=== PATIENT | female | born 1980 | race Hispanic/Latino ===

== ENCOUNTER 2023-06-24 22:18 | Emergency (ER) | payer OTHER, SELFPAY ==
[2023-06-24 22:21] VITALS: BP 133/85
[2023-06-24 22:34] LABS: % Basophils 0.3 % (0-2); % Eosinophils 1.5 % (0-6); % Immature Granulocytes 0.3 % (0-0.5); % Lymphocytes 34.5 % (20.5-51.1); % Monocytes 6.2 % (1.7-9.3); % Neutrophils 57.2 % (42.2-75.2); Absolute Eosinophils 0.1 10^3/uL (0-0.7); Absolute Lymphocytes 2.6 10^3/uL (1.2-3.4); Absolute Monocytes 0.5 10^3/uL (0.1-0.6); Absolute Neutrophils 4.2 10^3/uL (1.4-6.5); Hematocrit 31.6 % (37.0-47.0); Hemoglobin 11.1 g/dL (12.0-16.0); Mean Corp Hgb Conc. 35.1 g/dL (33.0-37.0); Mean Corpuscular Hgb 29.4 pg (27.0-31.0); Mean Corpuscular Volume 83.8 fL (81.0-99.0); Nucleated Red Blood Cells % 0 %; Platelet Count 254 10^3/uL (130-400); Red Blood Cell Count 3.77 10^6/uL (4.20-5.40); Red Cell Dist. Width 13.2 % (11.5-14.5); White Blood Cell Count 7.4 10^3/uL (4.8-10.8)
[2023-06-24 22:44] LABS: HCG, Serum Qualitative Screen Negative
[2023-06-24 22:48] LABS: ALT (SGPT) 42 U/L (0-35); AST (SGOT) 30 U/L (14-36); Albumin 4.1 g/dl (3.5-5.0); Alkaline Phosphatase 82 U/L (38-126); Blood Urea Nitrogen 11 mg/dl (7-17); Calcium 8.9 mg/dl (8.4-10.2); Carbon Dioxide 28 mmol/L (22-30); Chloride 105 mmol/L (98-107); Glucose 88 mg/dl (70-99); Potassium 3.4 mmol/L (3.5-5.1); Sodium 135 mmol/L (135-145); Total Bilirubin 0.6 mg/dl (0.2-1.3); Total Protein 7.2 g/dl (6.3-8.2); eGFR > 60.00
[2023-06-24 22:53] VITALS: BMI 31.4
[2023-06-24 23:18] LABS: Urine Albumin Negative (Neg - Trace); Urine Bilirubin Negative (Negative); Urine Character Clear (Clear); Urine Color Yellow; Urine Glucose Negative (Negative); Urine Ketone Negative (Negative); Urine Leukocyte Negative (Negative); Urine Nitrite Negative (Negative); Urine Occult Blood Negative (Negative); Urine Specific Gravity 1.015 (<1.030); Urine Urobilinogen Negative (Neg - 1+)
--- NOTE | 2023-06-24 23:29 | ED.GENMED ---
History of Present Illness
General
Chief Complaint: Female Coagulating Bath Mixer/Gu symptoms
Source: patient
Exam Limitations: none
Time Seen by Provider: 06/24/23 23:09
Travel History
Have you had any contact with someone who has COVID-19?: No
Do you have any symptoms of coronavirus? Fever > 100 degrees, chills, cough, shortness of breath, sore throat, loss of taste or smell, muscle aches, or headache?: No
History of Present Illness
History of Present Illness:
This is a 43 year old female that comes in with c/o left lower abd pain. States that this feels like pain that she has had on the right side when she had an ovarian cyst. Staes that this has been going on for the past year but her Child has sickle
cell and she is always in the hospital with him. States that the pain is getting worse. States that she has also missed her Period in April and so far in [facility]. Denies any fever,chills, chest pain, SOB, nausea, vomiting, diarrhea, headache,
dizziness, urinary burning.
Past History
Past History
ED Past Medical History: Asthma, Cancer (Thyroid), HTN and Other (Migraines, Chronic back pain, Herniated disc, Ovarian cyst, Sickle cell trait)
ED Past Surgical History: Appendectomy, Cholecystectomy, , Gynecological (Tubal) and Other (Thyroidectomy)
Social History
Tobacco: Non-smoker
Alcohol: None
Drug: None
Personal: Single
Living: with family
Review of Systems
Review of Systems
All Other Systems: ROS reviewed and negative except as documented in HPI and ROS
Constitutional: Reports no symptoms; Denies fever or chills
EENT: Reports no symptoms
Respiratory: Reports no symptoms; Denies cough or trouble breathing
Cardiac: Reports no symptoms; Denies chest pain
ABD/GI: Reports abdominal pain; Denies nausea, vomiting or diarrhea
: Reports no symptoms; Denies dysuria, frequency or urgency
Musculoskeletal: Reports no symptoms
Skin: Reports no symptoms
Neurological: Reports no symptoms; Denies dizzy or headache
Psychiatric: Reports no symptoms
Phy Exam
General Physical Exam
General Presentation: no apparent distress
General age: appears stated age
General Skin: warm and dry
General Habitus: normal
General Mental: alert
General Hydration: appears well hydrated
ENT Exam
ENT Exam: TM's normal, pharynx normal and neck supple
Eye Exam
Eye Exam: EOMI
Cardiovascular Exam
Cardiovascular Exam: regular rate/rhythm, no edema, no murmur and normal peripheral pulses
Pulmonary Exam
Pulmonary Exam: lungs clear, no respiratory distress, no rales, chest non tender, no crackles, no rhonchi, no wheezing and no cough
Gastrointestinal Exam
Gastrointestinal Exam: normal bowel sounds, soft, no organomegaly, no pulsatile mass, non distended and tender (Left lower abd pain)
Musculoskeletal Exam
Musculoskeletal Exam: full ROM and no edema
Skin Exam
Skin Exam: normal color, warm/dry, no rash and no petechia
Psychiatric Exam
Psychiatric Exam: normal mood/affect
Course
Orders/Labs/Results
Orders:
Orders
06/24/23 22:24
Test Result ONCE
06/24/23 22:28
Complete Blood Count/With Diff Urgent
Comprehensive Metabolic Panel Urgent
HCG, Serum Qualitative Screen Urgent
06/24/23 22:31
Free T4 Urgent
TSH Reflex To Free T4 Urgent
Comment: ADDED
06/24/23 23:11
Urinalysis Reflex To Culture Urgent
Date Specimen was Collected: 06/24/23
Time Specimen was Collected: 23:06
06/24/23 23:28
Add On- LAB Urgent
Tests Added?: TSH with reflex free T4
0.9% Sodium Chloride 1000 ml [Nss] 1,000 ml IV BOLUS
06/25/23 00:00
US Pelvis Only (non-obstetric) Urgent
Reason For Exam: Left lower abd pain
06/25/23 01:36
CT Abd/pelvis W Iv Cont Urgent
Comment:
Reason For Exam: Left sided abd pain.
06/25/23 01:38
Ketorolac [Toradol] 30 mg IV NOW STA
Abnormal Lab Results
06/24/23 06/24/23
22: 22:31
RBC 3.77 L 10^6/uL
(4.20-5.40)
Hgb 11.1 L g/dL
(12.0-16.0)
Hct 31.6 L %
(37.0-47.0)
Potassium 3.4 L mmol/L
(3.5-5.1)
ALT 42 H U/L
(0-35)
TSH (Reflex) 4.80 H uIU/ml
(0.47-4.68)
06/24/23 22:28
06/24/23 22:28
H/H slightly low. ALT mildly elevated. HCG negative. Urine negative for infection.
TSH 4.80
Vital Signs
Initial and Last Documented VS:
Initial Vital Signs
Temp Pulse Resp BP Pulse Ox
98.4 F 72 19 133/85 100
06/24/23 22:21 06/24/23 22:21 06/24/23 22:21 06/24/23 22:21 06/24/23 22:21
Last Documented Vital Signs
Temp Pulse Resp BP Pulse Ox
97.8 F 80 20 112/71 99
06/25/23 01:36 06/25/23 01:36 06/25/23 01:36 06/25/23 01:36 06/25/23 01:36
MDM/Problems Addressed
Differential Diagnosis Includes:
Ovarian cyst, Diverticulitis,
MDM/Problems Addressed:
This is a 43 year old female that comes in with c/o left lower abd pain. States that she feels this is an ovarian cyst and has had discomfort for a year but this is getting worse.
Will get labs and US. If US is negative will get CT scan. Will give IV fluids to help fill patient. Will also get Urine.
Back into see patient. Explained that her US is negative for any acute process. There is an ovarian follicle in the left and the right ovary is absent. This would not cause patient pain. Will get CT to r/o any colitis or diverticulitis.
Back into see patient. Explained that the CT shows that there is a left ovarian cyst. Otherwise there is no acute process. Patient can follow up with the [facility] for further evaluation. Patient also notified that her TSH was slightly elevated at
4.80. Patient can follow up with the [facility]. Patient to return with any concerns.
Chronic conditions affecting care:
History of ovarian cyst,
Acute Exacerbation and/or Progression of Chronic Illness:
Ovarian cyst
*Radiology
Radiology exam reviewed: radiology read reviewed (US night hawk- There is a 2.8cm dominant follicle on the left ovary. Vascular flow is documented in the left ovarian parenchyma. Right ovary is reportedly surgically absent. Uterus is unremarkable.
No free fluid is seen. CT abd/pelvis night hawk- No specific acute process. 3cm left ovarian cystic), all reviewed NAD by ED Provider (CT cont- left ovarian cystic lesion. No evidence for bowel obstruction or free air. No signs of colitis. Changes
or prior appendectomy. Nonobstructing bilateral renal calculi. No ureteral calculis or hydronephrosis bilaterally. Hypodense lesions in the kidneys and liver, some of which are consistent) and other (CT cont- consistent with cysts while others are
too small to characterize. Cholecystectomy. )
*Pulse Oximetry
Patient hypoxic: no
*EKG
Interpreted by ED Provider?: NA
Rate: EKG- N/A
*Telephone Repairer Interpretation
Rate: Telephone Repairer- N/A
*Critical Care Note
Total Time (30-74mins, 75-104mins- exclusive of procedures): Not Applicable
ED Attending Note
-
Portions of this chart may have been created with voice recognition software.� Occasional wrong word or��sound alike� substitutions may have occurred due to the inherent limitations of voice recognition software.
Discharge Plan
Departure
Patient Disposition: Home (Routine Discharge)
Date of Disposition: 06/25/23
Time of Disposition: 02:36
Patient with high blood pressure during this ER visit?: No
Condition: Good
Covid-19: Not Applicable
Discharge Problem:
Cyst of left ovary
Instructions: Ovarian Cyst (DC)
Prescriptions:
No Action
oxycodone 10 mg Tablet
10 mg PO DAILY
Rx Instructions:
chronic back pain
Referrals:
Seng Sanchez MD [Consulting Staff] - Call in 1-3 days for appt
PRIVATE,PHYSICIAN [Family Provider] -
Activity Restrictions/Additional Instructions:
As discussed, your blood work shows that your ALT is slightly elevated. Your urine is negative for infection. Your US shows that you have a left ovarian follicle but the CT shows that you also have a left ovarian cyst. Please follow up with the
[facility] for further evaluation. Your TSH is very slightly elevated. You have been given the name of an [facility] for further evaluation. You may take Tylenol 1000mg every 6 hours for pain and alternate with Ibuprofen 600mg every 6 hours with
food for pain. IF YOU HAVE ANY OTHER CONCERNS PLEASE RETURN TO THE EMERGENCY ROOM.
Interventions
Interventions:
*Risk Screen - Suicide Last Done: 06/24/23 22:21
*General Assessment Last Done: 06/24/23 22:21
*Neglect/Abuse Screening Last Done: 06/24/23 22:21
ED- Fall Risk Assessment Last Done: 06/24/23 22:54
*ED COVID-19 Vaccine History Last Done: 06/24/23 22:21
ED-Female Genitourinary Assessment Last Done: 06/24/23 22:54
[2023-06-24 23:39] VITALS: BP 117/74
[2023-06-24] MEDS: NSS 1000 IV (23:49)
[2023-06-25 01:36] VITALS: BP 112/71
[2023-06-25] MEDS: TORADOL 30 MG IV (01:40)
[2023-06-25 02:55] LABS: Free T4 0.97 ng/dl (0.78-2.19)
== END 2023-06-25 02:51 | disposition home or self-care (01) ==
LOC: EMR 22:18
PROVIDERS: Emergency Medicine; EMERGENCY PHYSICIAN Student in an Organized Health Care Education/Training Program
DX: N83.202 Unspecified ovarian cyst, left side (principal)
CPT/HCPCS: 99285; 96360; 74177; 76856; 80053; 81003; 84439; 84443; 84703; 85025; Q9967

== ENCOUNTER 2024-06-07 21:50 | Emergency (ER) | payer OTHER, SELFPAY ==
[2024-06-07 21:52] VITALS: BP 144/92
[2024-06-07 22:40] LABS: % Basophils 0.2 % (0-2); % Eosinophils 1.3 % (0-6); % Immature Granulocytes 0.2 % (0-0.5); % Lymphocytes 33.1 % (20.5-51.1); % Monocytes 4.2 % (1.7-9.3); Absolute Eosinophils 0.1 10^3/uL (0-0.7); Absolute Monocytes 0.3 10^3/uL (0.1-0.6); Absolute Neutrophils 3.8 10^3/uL (1.4-6.5); Hematocrit 33.1 % (37.0-47.0); Hemoglobin 11.3 g/dL (12.0-16.0); Mean Corp Hgb Conc. 34.1 g/dL (33.0-37.0); Mean Corpuscular Hgb 28.7 pg (27.0-31.0); Mean Platelet Volume 10.5 fL (7.4-10.4); Nucleated Red Blood Cells % 0 %; Platelet Count 222 10^3/uL (130-400); Red Blood Cell Count 3.94 10^6/uL (4.20-5.40); Red Cell Dist. Width 12.4 % (11.5-14.5); White Blood Cell Count 6.2 10^3/uL (4.8-10.8)
[2024-06-07 22:43] LABS: ALT (SGPT) 55 U/L (0-35); AST (SGOT) 50 U/L (14-36); Albumin 4.4 g/dl (3.5-5.0); Alkaline Phosphatase 73 U/L (38-126); Blood Urea Nitrogen 7 mg/dl (7-17); Calcium 9.1 mg/dl (8.4-10.2); Carbon Dioxide 28 mmol/L (22-30); Chloride 101 mmol/L (98-107); Glucose 97 mg/dl (70-99); Potassium 3.3 mmol/L (3.5-5.1); Sodium 140 mmol/L (135-145); Total Protein 7.1 g/dl (6.3-8.2); eGFR > 60.00
[2024-06-07 22:50] LABS: COVID-19 Antigen Negative (Negative)
[2024-06-07 22:55] LABS: Troponin I < 0.012 ng/ml
[2024-06-08 00:41] VITALS: BMI 26.6
--- NOTE | 2024-06-08 01:10 | ED.GENMED ---
History of Present Illness
General
Chief Complaint: Cold/Flu/URI Symptoms
Source: patient
Exam Limitations: none
Time Seen by Provider: 06/08/24 00:47
Nursing documentation reviewed up to this point in time: agreed with
History of Present Illness
History of Present Illness:
Patient to ED with complaint of cough, chest burning with cough. SYmptoms started last week and continue. States he son was recently hospitalized for similar symptoms. Brought self to ED for eval. Initially reports fever but nothng recently. No
n/v/d.
Past History
Past History
ED Past Medical History: Asthma, Cancer (Thyroid), HTN and Other (Migraines, Chronic back pain, Herniated disc, Ovarian cyst, Sickle cell trait)
ED Past Surgical History: Appendectomy, Cholecystectomy, , Gynecological (Tubal) and Other (Thyroidectomy)
Social History
Tobacco: Non-smoker
Alcohol: None
Drug: None
Personal: Single
Living: with family
Review of Systems
Review of Systems
Allergies reviewed?: Yes
All Other Systems: ROS reviewed and negative except as documented in HPI and ROS
Constitutional: Reports fatigue
EENT: Reports no symptoms
Respiratory: Reports cough
Cardiac: Reports no symptoms
ABD/GI: Reports no symptoms
: Reports no symptoms
Musculoskeletal: Reports no symptoms
Skin: Reports no symptoms
Neurological: Reports no symptoms
Psychiatric: Reports no symptoms
Phy Exam
General Physical Exam
General Presentation: well appearing and no apparent distress
General age: appears stated age
General Skin: warm
ENT Exam
ENT Exam: EOMI, TM's normal and pharynx normal
Cardiovascular Exam
Cardiovascular Exam: regular rate/rhythm and no edema
Pulmonary Exam
Pulmonary Exam: lungs clear, no respiratory distress and chest non tender
Musculoskeletal Exam
Musculoskeletal Exam: full ROM and neuro vasc intact
Skin Exam
Skin Exam: normal color, warm/dry and no rash
Psychiatric Exam
Psychiatric Exam: normal mood/affect
Course
Orders/Labs/Results
Orders:
Orders
06/07/24 21:55
Electrocardiogram (*1) Urgent
Reason for Study: Chest Pain
CR Chest - 2 Views Urgent
Comment:
Reason For Exam: cough, congestion, chest pain
06/07/24 21:56
EKG- Treatment ONCE
06/07/24 22:23
COVID-19 Antigen Urgent
Source: Nasal Swab
Complete Blood Count/With Diff Urgent
Comprehensive Metabolic Panel Urgent
Troponin I Urgent
Influenza A+B Rapid Molecular Urgent
MELANY Source: Nasal Swab
Specimen Description:
06/08/24 01:09
Ipratropium/Albuterol Sulfate [Duoneb] 3 ml INH R NOW STA
Abnormal Lab Results
06/07/24
22:23
RBC 3.94 L 10^6/uL
(4.20-5.40)
Hgb 11.3 L g/dL
(12.0-16.0)
Hct 33.1 L %
(37.0-47.0)
MPV 10.5 H fL
(7.4-10.4)
Potassium 3.3 L mmol/L
(3.5-5.1)
AST 50 H U/L
(14-36)
ALT 55 H U/L
(0-35)
06/07/24 22:23
06/07/24 22:23
Vital Signs
Initial and Last Documented VS:
Initial Vital Signs
Temp Pulse Resp BP Pulse Ox
98.3 F 89 18 144/92 96
06/07/24 21:52 06/07/24 21:52 06/07/24 21:52 06/07/24 21:52 06/07/24 21:52
Last Documented Vital Signs
Temp Pulse Resp BP Pulse Ox
98.3 F 89 18 144/92 96
06/07/24 21:52 06/07/24 21:52 06/07/24 21:52 06/07/24 21:52 06/07/24 21:52
*Radiology
Radiology exam reviewed: radiology read reviewed
*Critical Care Note
Total Time (30-74mins, 75-104mins- exclusive of procedures): Not Applicable
ED Attending Note
-
Portions of this chart may have been created with voice recognition software.� Occasional wrong word or��sound alike� substitutions may have occurred due to the inherent limitations of voice recognition software.
Discharge Plan
Departure
Patient Disposition: Home (Routine Discharge)
Date of Disposition: 06/08/24
Time of Disposition: 01:14
Patient with high blood pressure during this ER visit?: No
Condition: Good
Covid-19: Not Applicable
Discharge Problem:
Acute bronchitis
Instructions: Acute Bronchitis, Adult (DC)
Prescriptions:
New
albuterol sulfate 90 mcg/actuation HFA aerosol inhaler
2 puff inhalation QID PRN (Reason: shortness of breath or wheezing) Qty: 8.5 0RF
prednisone 10 mg Tablet
See Rx Instructions .ROUTE .COMPLEX Qty: 30 0RF
Rx Instructions:
Take By Mouth:
40 mg daily x3 days, 30 mg daily x3 days,
20 mg daily x3 days, 10 mg daily x3 days.
No Action
oxycodone 10 mg Tablet
10 mg PO DAILY
Rx Instructions:
chronic back pain
Referrals:
UNKNOWN - PT DOES,NOT KNOW [Family Provider] -
Activity Restrictions/Additional Instructions:
Return to the emergency department immediately for any changes in/worsening of your symptoms.
Interventions
Interventions:
*Risk Screen - Suicide Last Done: 06/07/24 21:52
*General Assessment Last Done: 06/07/24 21:52
*Neglect/Abuse Screening Last Done: 06/07/24 21:52
ED- Fall Risk Assessment Last Done: 06/08/24 00:41
*ED COVID-19 Vaccine History Last Done: 06/08/24 00:41
ED- Pulmonary Assessment Last Done: 06/08/24 00:41
Discharge Date and Time
Print Language: TUNISIAN
[2024-06-08] MEDS: DUONEB 3 ML INH (01:29)
== END 2024-06-08 02:05 | disposition home or self-care (01) ==
LOC: EMR 21:50
PROVIDERS: Emergency Medicine; EMERGENCY PHYSICIAN Emergency Medicine
DX: J20.9 Acute bronchitis, unspecified (principal); Z11.52 Encounter for screening for COVID-19
CPT/HCPCS: 99285; 94640; 71046; 80053; 84484; 85025; 87502; 87811; 93005

== ENCOUNTER 2024-07-14 15:19 | Emergency (ER) | payer OTHER, SELFPAY ==
[2024-07-14 15:19] VITALS: BMI 31.4
[2024-07-14 15:25] VITALS: BP 133/87
[2024-07-14 15:59] LABS: % Basophils 0.4 % (0-2); % Eosinophils 2.1 % (0-6); % Immature Granulocytes 0.2 % (0-0.5); % Lymphocytes 38.4 % (20.5-51.1); % Monocytes 6.6 % (1.7-9.3); % Neutrophils 52.3 % (42.2-75.2); Absolute Eosinophils 0.1 10^3/uL (0-0.7); Absolute Lymphocytes 1.9 10^3/uL (1.2-3.4); Absolute Monocytes 0.3 10^3/uL (0.1-0.6); Absolute Neutrophils 2.5 10^3/uL (1.4-6.5); Hematocrit 32.3 % (37.0-47.0); Hemoglobin 11.1 g/dL (12.0-16.0); Mean Corp Hgb Conc. 34.4 g/dL (33.0-37.0); Mean Corpuscular Hgb 29.5 pg (27.0-31.0); Mean Corpuscular Volume 85.9 fL (81.0-99.0); Mean Platelet Volume 10.8 fL (7.4-10.4); Nucleated Red Blood Cells % 0 %; Platelet Count 221 10^3/uL (130-400); Red Blood Cell Count 3.76 10^6/uL (4.20-5.40); Red Cell Dist. Width 12.7 % (11.5-14.5); White Blood Cell Count 4.8 10^3/uL (4.8-10.8)
[2024-07-14 16:00] VITALS: BP 122/74
[2024-07-14 16:16] LABS: ALT (SGPT) 28 U/L (0-35); AST (SGOT) 27 U/L (14-36); Albumin 4.5 g/dl (3.5-5.0); Alkaline Phosphatase 64 U/L (38-126); Blood Urea Nitrogen 10 mg/dl (7-17); Calcium 9.4 mg/dl (8.4-10.2); Carbon Dioxide 26 mmol/L (22-30); Chloride 105 mmol/L (98-107); Glucose 88 mg/dl (70-99); Sodium 139 mmol/L (135-145); Total Bilirubin 0.8 mg/dl (0.2-1.3); Total Protein 7.2 g/dl (6.3-8.2); eGFR > 60.00
--- NOTE | 2024-07-14 17:10 | ED.GENMED ---
History of Present Illness
General
Chief Complaint: Rectal Bleeding
Time Seen by Provider: 07/14/24 17:10
History of Present Illness
History of Present Illness:
TIME OF INITIAL ENCOUNTER: 5:15 PM
HPI: Patient presents due to several months of lower GI bleeding along with pain in the sacral region. Bleeding also occurs when she wipes. She has not seen a GI doctor. At times her stool is loose. She does not have abdominal pain.
EXAM:
GENERAL: Well appearing in no distress
HEENT: Moist oral mucosa
CARDIOVASCULAR: No murmurs, normal heart rate, regular rhythm, No chest wall tenderness
PULMONARY: No respiratory distress, breath sounds are clear and equal
ABDOMEN: Soft with no peritoneal signs, no tenderness, with nurse in the room, digital rectal examination shows small amount of blood which is heme positive mixed with stool, no external hemorrhoids, no evidence for pilonidal cyst, there were no
external hemorrhoids
NEUROLOGIC: Excellent strength all extremities, no coordination deficits
PSYCHIATRIC: Appropriate mental status, normal insight and judgement
EXTREMITIES: Nontender, no edema, moves all extremities equally
SKIN: No rash, no lesions
NUMBER AND COMPLEXITY OF PROBLEMS ADDRESSED AT THE ENCOUNTER
� Chronic conditions affecting care: High blood pressure, sickle cell trait, thyroid cancer
� Acute Exacerbation and/or Progression of Chronic Illness: This is an acute problem
� Differential Diagnosis includes: Lower GI bleed, diverticular bleed, internal hemorrhoidal bleed, no evidence of external hemorrhoid
AMOUNT AND/OR COMPLEXITY OF DATA TO BE REVIEWED AND ANALYZED
� I performed an independent evaluation of and my interpretation is:
EKG:
CT:
X-rays: Sacral/coccygeal x-ray shows no evidence of fracture however does have some degenerative disc disease at L4-5 and L5-S1
Laboratory Studies: White count 4.8, hemoglobin 11.1, chemistries unremarkable
Other:
� Review of other/old records: I reviewed records, the patient's hemoglobin last month was 11.3 and 1 year ago was 11.1
� Clinical information was obtained by an independent historian: None needed
� Prescriptions/Medications Considered but not given:
� Further testing considered but not performed:
RISK OF COMPLICATIONS AND/OR MORBIDITY OR MORTALITY OF PATIENT MANAGEMENT
� Social determinants of health affecting care: Lives at home
� Discussion with other providers: I did contact the GI front office to help arrange close outpatient follow-up
� Escalation of care including admission/observation vs risk of discharge considered: The patient's hemoglobin has remained stable over the last several years including today. Hoping for close outpatient follow-up with GI.
ANY OTHER UPDATES:
Past History
Past History
ED Past Medical History: Asthma, Cancer (Thyroid), HTN and Other (Migraines, Chronic back pain, Herniated disc, Ovarian cyst, Sickle cell trait)
ED Past Surgical History: Appendectomy, Cholecystectomy, , Gynecological (Tubal) and Other (Thyroidectomy)
Social History
Tobacco: Non-smoker
Alcohol: None
Drug: None
Personal: Single
Living: with family
Phy Exam
Physical Exam
Physical Exam:
See HPI
Course
Orders/Labs/Results
Orders:
Orders
07/14/24 15:28
CR Sacrum/coccyx Min 2 View Urgent
Comment:
Reason For Exam: tailbone pain
07/14/24 15:47
CMP [Comprehensive Metabolic Panel] Urgent
Complete Blood Count/With Diff Urgent
Abnormal Lab Results
07/14/24
15:47
RBC 3.76 L 10^6/uL
(4.20-5.40)
Hgb 11.1 L g/dL
(12.0-16.0)
Hct 32.3 L %
(37.0-47.0)
MPV 10.8 H fL
(7.4-10.4)
03/19/25 15:47
07/14/24 15:47
Vital Signs
Initial and Last Documented VS:
Initial Vital Signs
Temp Pulse Resp BP Pulse Ox
36.9 C 90 18 133/87 98
07/14/24 15:25 07/14/24 15:25 07/14/24 15:25 07/14/24 15:25 07/14/24 15:25
Last Documented Vital Signs
Temp Pulse Resp BP Pulse Ox
36.9 C 74 16 122/74 99
07/14/24 15:25 07/14/24 16:00 07/14/24 16:00 07/14/24 16:00 07/14/24 17:27
*Critical Care Note
Total Time (30-74mins, 75-104mins- exclusive of procedures): Not Applicable
ED Attending Note
-
Portions of this chart may have been created with voice recognition software.� Occasional wrong word or��sound alike� substitutions may have occurred due to the inherent limitations of voice recognition software.
Discharge Plan
Departure
Patient Disposition: Home (Routine Discharge)
Date of Disposition: 07/14/24
Time of Disposition: 17:27
Patient with high blood pressure during this ER visit?: Yes
Discharge Problem:
Rectal bleeding
Instructions: Bloody Stools, Adult (DC), BLOOD PRESSURE
Prescriptions:
No Action
oxycodone 10 mg Tablet
10 mg PO DAILY
Rx Instructions:
chronic back pain
albuterol sulfate 90 mcg/actuation HFA aerosol inhaler
2 puff inhalation QID PRN (Reason: shortness of breath or wheezing) Qty: 8.5 0RF
prednisone 10 mg Tablet
See Rx Instructions .ROUTE .COMPLEX Qty: 30 0RF
Rx Instructions:
Take By Mouth:
40 mg daily x3 days, 30 mg daily x3 days,
20 mg daily x3 days, 10 mg daily x3 days.
Referrals:
Dex Barr MD [Active] - Next open appointment
Activity Restrictions/Additional Instructions:
I have given the contact information for local [facility] specialist to follow-up with, Dr. Barr. I also sent a message to their office and hopefully they will call you soon to arrange close follow-up. Your hemoglobin is a little low, but the has
it has been the last several times it has been checked.
Interventions
Interventions:
*Risk Screen - Suicide Last Done: 07/14/24 15:25
*General Assessment Last Done: 07/14/24 15:25
*Neglect/Abuse Screening Last Done: 07/14/24 15:25
*ED- Fall Risk Assessment Last Done: 07/14/24 15:25
*ED COVID-19 Vaccine History Last Done: 07/14/24 15:25
*Nursing Disposition Last Done: 07/14/24 17:34
[facility]rgoao[facility] Assessment Last Done: 07/14/24 17:27
ED- Cardiac Assessment Last Done: 07/14/24 17:27
ED- Pulmonary Assessment Last Done: 07/14/24 17:27
Discharge Date and Time
Discharge Date/Time: 07/14/24 17:34
Print Language: [place] CITIZ[place]
== END 2024-07-14 17:34 | disposition home or self-care (01) ==
LOC: EMR 15:19
PROVIDERS: Emergency Medicine; EMERGENCY PHYSICIAN Emergency Medicine
DX: K62.5 Hemorrhage of anus and rectum (principal); I10 Essential (primary) hypertension; D57.3 Sickle-cell trait; J45.909 Unspecified asthma, uncomplicated; Z85.850 Personal history of malignant neoplasm of thyroid; Z90.49 Acquired absence of other specified parts of digestive tract; E89.0 Postprocedural hypothyroidism
CPT/HCPCS: 99284; 72220; 80053; 85025

== ENCOUNTER 2024-07-26 06:29 | Day surgery (SDC) | payer OTHER, SELFPAY | END 2024-07-26 14:59 | disposition home or self-care (01) | LOC: GI 06:29 | PROVIDERS: ATTENDING PHYSICIAN Internal Medicine Gastroenterology | DX: K62.5 Hemorrhage of anus and rectum (principal); R10.30 Lower abdominal pain, unspecified; R19.4 Change in bowel habit; K64.8 Other hemorrhoids | CPT/HCPCS: 45378 ==

== ENCOUNTER → 2024-08-09 12:49 | Outpatient (REF) | payer OTHER, SELFPAY | LOC: RAD 12:49 | PROVIDERS: ATTENDING PHYSICIAN Internal Medicine Gastroenterology | DX: R10.30 Lower abdominal pain, unspecified (principal) | CPT/HCPCS: 74177; Q9967 ==